=== PATIENT | male | born 2000 | race Hispanic/Latino ===

== ENCOUNTER 2023-10-22 10:57 | Inpatient (IN) | payer OTHER ==
[~2023-10-22] VITALS: Ht 165.1 cm; Wt 57.4 kg
[~2023-10-22 10:57] MED LIST: ROCURONIUM BROMIDE 10MG/1ML 5ML VL IV ONE
[2023-10-22 11:38] LABS: BASOPHILS # (AUTO) 0.03 K/uL (0.00-0.20); BASOPHILS % (AUTO) 0.5 % (0.0-5.0); EOSINOPHILS # (AUTO) 0.03 K/uL (0.00-0.70); EOSINOPHILS % (AUTO) 0.5 % (0.0-8.0); HEMATOCRIT 38.7 % (42-54); IMMATURE GRANULOCYTE ABSOLUTE 0.01 K/uL (0-1); LYMPHOCYTES # (AUTO) 1.3 K/uL (1.0-4.8); LYMPHOCYTES % (AUTO) 21.1 % (21.0-51.0); MEAN CORPUSCULAR HGB CONC 35.4 g/dL (32.0-36.0); MEAN CORPUSCULAR VOLUME 84.9 fL (79-99); MONOCYTES # (AUTO) 0.5 K/uL (0.1-1.0); MONOCYTES % (AUTO) 7.9 % (3.0-13.0); NEUTROPHILS # (AUTO) 4.1 K/uL (1.8-7.7); NEUTROPHILS % (AUTO) 69.8 % (40.0-77.0); PLATELET COUNT (AUTO) 228 K/uL (130-400); RED BLOOD CELL COUNT(AUTO) 4.56 MIL/uL (4.50-6.20); RED CELL DISTRIBUTION WIDTH 11.9 % (11.0-15.5); WHITE BLOOD COUNT (AUTO) 5.9 K/uL (4.8-10.8)
[2023-10-22 11:49] LABS: CARBON DIOXIDE 28 mmol/L (21-32); CHLORIDE 103 mmol/L (101-111); CREATININE 0.8 mg/dL (0.5-1.3); GLOMERULAR FILTR. RATE CALC 128 mL/min (>90); GLUCOSE,RANDOM 104 mg/dL (70-105); SODIUM SERUM 138 mmol/L (136-145); UREA NITROGEN, BLOOD 6 mg/dL (7-18)
[2023-10-22 11:54] LABS: AMPHET/METH SCREEN,URINE NEGATIVE (NEGATIVE); BARBITURATE SCREEN, URINE NEGATIVE (NEGATIVE); BENZODIAZEPINES SCREEN,URINE NEGATIVE (NEGATIVE); CANNABINOID SCREEN,URINE NEGATIVE (NEGATIVE); COCAINE SCREEN,URINE NEGATIVE (NEGATIVE); OPIATE SCREEN,URINE NEGATIVE (NEGATIVE); PHENCYCLIDINE SCREEN,URINE NEGATIVE (NEGATIVE)
[2023-10-22 12:11] LABS: ALANINE AMINOTRANSFERASE 43 U/L (12-78); ALBUMIN 3.5 g/dL (3.5-5.0); ALCOHOL, BLOOD < 3 mg/dL (0-10); ASPARTATE AMINOTRANSFERASE 69 U/L (10-37); BILIRUBIN,TOTAL 0.5 mg/dL (0.2-1.0); TOTAL PROTEIN, SERUM 6.7 g/dL (6.0-8.3)
[2023-10-22] MEDS: 0.9%NACL 1000ML 1,000 ML IV ONE (12:17)
[2023-10-22 12:24] LABS: CREATINE KINASE, TOTAL 3297 U/L (21-232)
[2023-10-22 12:37] LABS: APPEARANCE,URINE CLEAR (CLEAR); BILIRUBIN,URINE NEGATIVE (NEGATIVE); COLOR,URINE COLORLESS (YELLOW); GLUCOSE, URINE (UA) NEGATIVE (NEGATIVE); KETONES,URINE NEGATIVE (NEGATIVE); LEUKOCYTE ESTERASE ,URINE NEGATIVE Leu/uL (NEGATIVE); NITRATE,URINE NEGATIVE (NEGATIVE); OCCULT BLOOD,URINE NEGATIVE (NEGATIVE); PH,URINE 7.5 (5.0-8.0); PROTEIN,URINE NEGATIVE (NEGATIVE); UROBILINOGEN,URINE 0.2 mg/dL (0.2-1.0)
[2023-10-22 12:38] LABS: ADD UA MICROSCOPIC NO
[2023-10-22] MEDS ORDERED: 0.9%NACL 1000ML 1,000 ML IV SCH (14:00)
[2023-10-22] MEDS ORDERED: ONDANSETRON 4MG INJ IVP PRN ×2 (15:00)
[2023-10-22] MEDS ORDERED: ACETAMINOPHEN 500 MG TABLET PO PRN ×2 (15:00)
[2023-10-22] MEDS: THIAMINE HCL 100 MG/ML 2ML VIAL IVP SCH (15:09)
[2023-10-22] MEDS: 0.9%NACL 1000ML 1,000 ML IV SCH (15:10)
[2023-10-22 15:49] LABS: MAGNESIUM 2.1 mg/dL (1.80-2.40); THYROID STIMULATING HORMONE 0.5 uIU/mL (0.36-3.74)
[2023-10-22 16:27] LABS: INR 0.95 (0.85-1.15); PROTHROMBIN TIME 11.3 SEC (9.6-11.6)
[2023-10-22 16:28] LABS: PARTIAL THROMBOPLASTIN TIME 33.5 SEC (26.3-35.5)
[2023-10-22] MEDS: ZIPRASIDONE MESYLATE 20 MG/VIAL IM ONE (19:51)
[2023-10-22] MEDS: ZIPRASIDONE MESYLATE 20 MG/VIAL IM SCH (19:51)
[2023-10-22] MEDS: DiphenhydrAMINE HCL 50 MG/ML VIAL IM ONE (20:47)
[2023-10-22 22:25] VITALS: PULSE 107
[2023-10-22] MEDS: KETAMINE HCL 100 MG/ML 5ML VIAL IJ ONE (22:37)
[2023-10-22] MEDS ORDERED: FENTANYL 2500MCG+NS 250ML 250 ML IV SCH (23:00)
[2023-10-22] MEDS: MIDAZOLAM HCL 50 MG in 0.9%NACL 50ML 50 ML IV SCH (23:05)
[2023-10-22 23:09] LABS: SARS-CoV-2, RNA, NAAT NEGATIVE SARS CoV-2 (NEGATIVE)
[2023-10-22] MEDS: PROPOFOL 1000 MG/100 ML 100 ML IV ONE (23:24)
[2023-10-22] MEDS: FENTANYL 1000MCG+NS 100ML 100 ML IV ONE (23:24)
[2023-10-22] MEDS: FENTANYL 1000MCG+NS 100ML 100 ML IV SCH (23:26)
[2023-10-22] MEDS: FENTANYL 2500MCG+NS 250ML 250 ML IV SCH (23:30)
[2023-10-22] MEDS: MIDAZOLAM 100MG-0.9% NS 100ML 100 ML IV SCH (23:36)
[2023-10-22 23:37] LABS: ABG BASE EXCESS 0.2 mmol/L (-2.0-3.0); ABG HCO3 24.8 mmol/L (21.0-28.0); ABG OXYGEN SATURATION 99.7 % (95.0-99.0); ABG PCO2 40 mmHg (35-48); ABG PH 7.409 (7.350-7.450); DEVICE COMMENT RR RN; PO2, ARTERIAL BG 311.9 mmHg (83.0-108.0); VENT MODE, BG AC (ROOM AIR)
[2023-10-23] VITALS (93 sets, daily range): BP systolic 86–123; BP diastolic 34–69; PULSE 57–91; RESP 16–19; O2SAT 97–100
[2023-10-23 05:07] LABS: BASOPHILS # (AUTO) 0.03 K/uL (0.00-0.20); BASOPHILS % (AUTO) 0.4 % (0.0-5.0); EOSINOPHILS # (AUTO) 0.08 K/uL (0.00-0.70); EOSINOPHILS % (AUTO) 1.1 % (0.0-8.0); HEMATOCRIT 36.6 % (42-54); IMMATURE GRANULOCYTE ABSOLUTE 0.03 K/uL (0-1); MEAN CORPUSCULAR HEMOGLOBIN 29.9 pg (27.0-33.0); MEAN CORPUSCULAR HGB CONC 36.1 g/dL (32.0-36.0); MONOCYTES # (AUTO) 0.8 K/uL (0.1-1.0); MONOCYTES % (AUTO) 10.4 % (3.0-13.0); NEUTROPHILS # (AUTO) 4.5 K/uL (1.8-7.7); NEUTROPHILS % (AUTO) 60.7 % (40.0-77.0); PLATELET COUNT (AUTO) 215 K/uL (130-400); RED BLOOD CELL COUNT(AUTO) 4.41 MIL/uL (4.50-6.20); WHITE BLOOD COUNT (AUTO) 7.4 K/uL (4.8-10.8)
[2023-10-23 05:51] LABS: ALBUMIN 3.3 g/dL (3.5-5.0); BILIRUBIN,TOTAL 0.5 mg/dL (0.2-1.0); CREATININE 0.6 mg/dL (0.5-1.3); MAGNESIUM 1.9 mg/dL (1.80-2.40); POTASSIUM 3.1 mmol/L (3.5-5.1); TOTAL PROTEIN, SERUM 6.2 g/dL (6.0-8.3)
[2023-10-23 06:24] LABS: INFLUENZA TYPE A NEGATIVE FOR TYPE A (NEG)
[2023-10-23 06:25] LABS: INFLUENZA TYPE B NEGATIVE FOR TYPE B (NEG)
[2023-10-23] MEDS ORDERED: POTASSIUM CHLORIDE 10MEQ/100ML 100 ML IV PRN (07:00)
[2023-10-23] MEDS ORDERED: SERT-439 PO (07:54)
[2023-10-23] MEDS ORDERED: CLOZ100T11 PO ×2 (07:54)
[2023-10-23] MEDS ORDERED: KCL 20 MEQ ERTAB PO PRN (08:00)
[2023-10-23] MEDS ORDERED: POTASSIUM CHLORIDE 20MEQ/100ML 100 ML IV PRN (08:00)
[2023-10-23] MEDS: PANTOPRAZOLE 40 MG/VIAL IVP SCH (08:37)
[2023-10-23] MEDS: ENOXAPARIN SODIUM 30 MG/0.3 ML SQ SCH (08:37)
[2023-10-23] MEDS: POTASSIUM CHLORIDE 10% ELIXIR 20 MEQ/15 ML UDCUP PO PRN (08:38)
[2023-10-23] MEDS: MAGNESIUM 2GM PREMIX 50ML 50 ML IV PRN (08:39)
[2023-10-23] MEDS: PROPOFOL 1000 MG/100 ML IV PRN (10:34)
[2023-10-23] MEDS: PROPOFOL 1000 MG/100 ML 100 ML IV ONE (10:36)
[2023-10-23] MEDS: ZIPRASIDONE MESYLATE 20 MG/VIAL IM SCH (11:36)
[2023-10-23] MEDS: DEXTROSE 5%-LACTATED RINGERS 1,000 ML IV SCH (11:36)
[2023-10-23] MEDS: CLOZAPINE 200 MG PO SCH (20:25)
[2023-10-24] VITALS (61 sets, daily range): BP systolic 85–155; BP diastolic 46–87; PULSE 70–117; RESP 14–17; O2SAT 99–100
[2023-10-24 00:24] LABS: ABG BASE EXCESS -2.9 mmol/L (-2.0-3.0); ABG HCO3 21.2 mmol/L (21.0-28.0); ABG OXYGEN SATURATION 98.1 % (95.0-99.0); ABG PCO2 35 mmHg (35-48); ABG PH 7.401 (7.350-7.450); CARBON MONOXIDE 0.3; HHb 1.9; PO2, ARTERIAL BG 132.1 mmHg (83.0-108.0); VENT MODE, BG AC (ROOM AIR)
[2023-10-24] MEDS: FENTANYL 1000MCG+NS 100ML 100 ML IV SCH (01:49)
[2023-10-24 04:21] LABS: BASOPHILS # (AUTO) 0.02 K/uL (0.00-0.20); BASOPHILS % (AUTO) 0.3 % (0.0-5.0); EOSINOPHILS % (AUTO) 1.6 % (0.0-8.0); HEMATOCRIT 37.1 % (42-54); IMMATURE GRANULOCYTE ABSOLUTE 0.01 K/uL (0-1); LYMPHOCYTES # (AUTO) 1.8 K/uL (1.0-4.8); LYMPHOCYTES % (AUTO) 29.1 % (21.0-51.0); MEAN CORPUSCULAR HGB CONC 34.2 g/dL (32.0-36.0); MEAN CORPUSCULAR VOLUME 87.5 fL (79-99); MONOCYTES # (AUTO) 0.8 K/uL (0.1-1.0); MONOCYTES % (AUTO) 12.2 % (3.0-13.0); NEUTROPHILS # (AUTO) 3.5 K/uL (1.8-7.7); NEUTROPHILS % (AUTO) 56.6 % (40.0-77.0); PLATELET COUNT (AUTO) 174 K/uL (130-400); RED BLOOD CELL COUNT(AUTO) 4.24 MIL/uL (4.50-6.20); WHITE BLOOD COUNT (AUTO) 6.2 K/uL (4.8-10.8)
[2023-10-24 04:49] LABS: ALBUMIN 2.7 g/dL (3.5-5.0); BILIRUBIN,TOTAL 0.5 mg/dL (0.2-1.0); CREATININE 0.6 mg/dL (0.5-1.3); POTASSIUM 3.3 mmol/L (3.5-5.1); TOTAL PROTEIN, SERUM 5.7 g/dL (6.0-8.3)
[2023-10-24] MEDS: SERTRALINE HCL 50 MG TABLET PO SCH (08:14)
[2023-10-24] MEDS: ZIPRASIDONE MESYLATE 20 MG/VIAL IM SCH (13:07)
[2023-10-24 20:03] LABS: APPEARANCE,URINE CLEAR (CLEAR); BILIRUBIN,URINE NEGATIVE (NEGATIVE); COLOR,URINE COLORLESS (YELLOW); GLUCOSE, URINE (UA) NEGATIVE (NEGATIVE); KETONES,URINE NEGATIVE (NEGATIVE); LEUKOCYTE ESTERASE ,URINE NEGATIVE Leu/uL (NEGATIVE); NITRATE,URINE NEGATIVE (NEGATIVE); OCCULT BLOOD,URINE NEGATIVE (NEGATIVE); PROTEIN,URINE NEGATIVE (NEGATIVE); UROBILINOGEN,URINE 0.2 mg/dL (0.2-1.0)
[2023-10-24 20:04] LABS: ADD UA MICROSCOPIC YES
[2023-10-24 20:05] LABS: RBC,URINE 0-1 /HPF (0-1)
[2023-10-24] MEDS: CHLORHEXIDINE GLUCONATE 15 ML MOUTHWASH MM SCH (20:20)
[2023-10-24] MEDS: ZOSYN 3.375GM +NS 50ML IV SCH (20:20)
[2023-10-24] MEDS: ARTIFICIAL TEARS 3.5 GM OINTMENT OU SCH (21:10)
[2023-10-25] VITALS (43 sets, daily range): BP systolic 85–148; BP diastolic 39–98; PULSE 79–122; RESP 10–24; O2SAT 95–100
[2023-10-25 05:19] LABS: BASOPHILS # (AUTO) 0.02 K/uL (0.00-0.20); BASOPHILS % (AUTO) 0.3 % (0.0-5.0); EOSINOPHILS # (AUTO) 0.14 K/uL (0.00-0.70); EOSINOPHILS % (AUTO) 1.8 % (0.0-8.0); IMMATURE GRANULOCYTE ABSOLUTE 0.03 K/uL (0-1); MEAN CORPUSCULAR HGB CONC 35.6 g/dL (32.0-36.0); MEAN CORPUSCULAR VOLUME 84.2 fL (79-99); MONOCYTES # (AUTO) 1.1 K/uL (0.1-1.0); MONOCYTES % (AUTO) 14.3 % (3.0-13.0); NEUTROPHILS # (AUTO) 5.6 K/uL (1.8-7.7); NEUTROPHILS % (AUTO) 71.2 % (40.0-77.0); PLATELET COUNT (AUTO) 186 K/uL (130-400); RED BLOOD CELL COUNT(AUTO) 4.87 MIL/uL (4.50-6.20); RED CELL DISTRIBUTION WIDTH 11.7 % (11.0-15.5); WHITE BLOOD COUNT (AUTO) 7.9 K/uL (4.8-10.8)
[2023-10-25 06:03] LABS: ALBUMIN 2.7 g/dL (3.5-5.0); BILIRUBIN,TOTAL 1.2 mg/dL (0.2-1.0); CREATININE 0.8 mg/dL (0.5-1.3); MAGNESIUM 1.5 mg/dL (1.80-2.40); PHOSPHORUS 4.9 mg/dL (2.5-4.9); POTASSIUM 3.5 mmol/L (3.5-5.1); TOTAL PROTEIN, SERUM 6.2 g/dL (6.0-8.3)
[2023-10-25] MEDS ORDERED: DEXMEDETOMIDINE 400MCG/NS100ML IV SCH (10:00)
[2023-10-25] MEDS: DEXMEDETOMIDINE 400MCG/NS100ML IV PRN (10:29)
[2023-10-25] MEDS: RACEPINEPHRINE HCL 2.25% 0.5 ML NEB SOLN ONE (14:49)
[2023-10-25] MEDS: RISPERIDONE 1 MG TABLET PO SCH (17:01)
[2023-10-25] MEDS ORDERED: VANCOMYCIN PROTOCOL PER PHARMACY IV SCH (18:00)
[2023-10-25] MEDS: VANCOMYCIN 1G/250ML KIT 250 ML IV SCH (18:12)
[2023-10-25] MEDS: OLANZAPINE 10MG/ML 1ML VIAL IM ONE (20:29)
[2023-10-25] MEDS: OLANZAPINE 10MG/ML 1ML VIAL IM STA (20:44)
[2023-10-26] VITALS (19 sets, daily range): BP systolic 106–129; BP diastolic 46–95; PULSE 100–119; RESP 11–29; O2SAT 97–100
[2023-10-26 03:59] LABS: BASOPHILS # (AUTO) 0.01 K/uL (0.00-0.20); BASOPHILS % (AUTO) 0.1 % (0.0-5.0); EOSINOPHILS # (AUTO) 0.02 K/uL (0.00-0.70); EOSINOPHILS % (AUTO) 0.2 % (0.0-8.0); HEMATOCRIT 39.7 % (42-54); IMMATURE GRANULOCYTE ABSOLUTE 0.04 K/uL (0-1); LYMPHOCYTES # (AUTO) 0.6 K/uL (1.0-4.8); LYMPHOCYTES % (AUTO) 5.5 % (21.0-51.0); MEAN CORPUSCULAR HEMOGLOBIN 30.3 pg (27.0-33.0); MEAN CORPUSCULAR HGB CONC 35.8 g/dL (32.0-36.0); MEAN CORPUSCULAR VOLUME 84.8 fL (79-99); MONOCYTES # (AUTO) 1.2 K/uL (0.1-1.0); MONOCYTES % (AUTO) 11.7 % (3.0-13.0); NEUTROPHILS # (AUTO) 8.2 K/uL (1.8-7.7); NEUTROPHILS % (AUTO) 82.1 % (40.0-77.0); PLATELET COUNT (AUTO) 183 K/uL (130-400); RED BLOOD CELL COUNT(AUTO) 4.68 MIL/uL (4.50-6.20); RED CELL DISTRIBUTION WIDTH 11.8 % (11.0-15.5); WHITE BLOOD COUNT (AUTO) 9.9 K/uL (4.8-10.8)
[2023-10-26 04:13] LABS: ALBUMIN 2.9 g/dL (3.5-5.0); BILIRUBIN,TOTAL 0.6 mg/dL (0.2-1.0); CREATININE 0.7 mg/dL (0.5-1.3); MAGNESIUM 1.9 mg/dL (1.80-2.40); PHOSPHORUS 3.4 mg/dL (2.5-4.9); POTASSIUM 4.1 mmol/L (3.5-5.1); TOTAL PROTEIN, SERUM 6.6 g/dL (6.0-8.3)
[2023-10-26] MEDS: OLANZAPINE 10MG/ML 1ML VIAL IM SCH (12:00)
[2023-10-26] MEDS: CEFEPIME HCL 1 GM VIAL IVPB SCH (13:24)
[2023-10-26] MEDS: CHLORPROMAZINE HCL 25 MG/ML 1ML AMP IM PRN (14:11)
[2023-10-26 15:29] LABS: THYROID STIMULATING HORMONE 0.38 uIU/mL (0.36-3.74)
[2023-10-26] MEDS ORDERED: CLONAZEPAM 1MG TAB PO SCH (20:30)
[2023-10-26] MEDS ORDERED: OLANZAPINE ODT 5 MG TAB PO PRN (20:30)
[2023-10-26] MEDS: CLONAZEPAM 1MG TAB PO ONE (21:27)
[2023-10-27] VITALS (9 sets, daily range): BP systolic 99–142; BP diastolic 45–94; PULSE 106–123; RESP 17–21; O2SAT 96–98
[2023-10-27 09:55] LABS: HEMATOCRIT 39.6 % (42-54); MEAN CORPUSCULAR HEMOGLOBIN 29.6 pg (27.0-33.0); MEAN CORPUSCULAR HGB CONC 35.6 g/dL (32.0-36.0); RED BLOOD CELL COUNT(AUTO) 4.77 MIL/uL (4.50-6.20); RED CELL DISTRIBUTION WIDTH 11.8 % (11.0-15.5); WHITE BLOOD COUNT (AUTO) 7.4 K/uL (4.8-10.8)
[2023-10-27 10:05] LABS: CREATININE 0.7 mg/dL (0.5-1.3); POTASSIUM 4.1 mmol/L (3.5-5.1)
[2023-10-27 10:28] LABS: BILIRUBIN,TOTAL 0.6 mg/dL (0.2-1.0); TOTAL PROTEIN, SERUM 7.1 g/dL (6.0-8.3)
[2023-10-27 11:38] LABS: AMPHET/METH SCREEN,URINE NEGATIVE (NEGATIVE); BARBITURATE SCREEN, URINE NEGATIVE (NEGATIVE); BENZODIAZEPINES SCREEN,URINE POSITIVE (NEGATIVE); CANNABINOID SCREEN,URINE NEGATIVE (NEGATIVE); COCAINE SCREEN,URINE NEGATIVE (NEGATIVE); CREATININE,URINE RANDOM 33.85 mg/dL (30-135); OPIATE SCREEN,URINE NEGATIVE (NEGATIVE); PHENCYCLIDINE SCREEN,URINE NEGATIVE (NEGATIVE)
[2023-10-27] MEDS: LACTATED RINGERS 1000ML 1,000 ML IV SCH (12:30)
[2023-10-27] MEDS: LACTULOSE 20 GM/30 ML UDCUP PO ONE (16:23)
[2023-10-27] MEDS: AMOX/CLAV 875/125MG TAB PO SCH (20:31)
[2023-10-28 04:00] VITALS: BP 140/80; PULSE 122; RESP 24
[2023-10-28 06:20] LABS: HEMATOCRIT 39.8 % (42-54); MEAN CORPUSCULAR HEMOGLOBIN 29.9 pg (27.0-33.0); MEAN CORPUSCULAR HGB CONC 35.2 g/dL (32.0-36.0); RED BLOOD CELL COUNT(AUTO) 4.68 MIL/uL (4.50-6.20); RED CELL DISTRIBUTION WIDTH 11.7 % (11.0-15.5); WHITE BLOOD COUNT (AUTO) 7.3 K/uL (4.8-10.8)
[2023-10-28 06:53] LABS: BILIRUBIN,TOTAL 0.4 mg/dL (0.2-1.0); CREATININE 0.8 mg/dL (0.5-1.3); MAGNESIUM 1.9 mg/dL (1.80-2.40); POTASSIUM 3.8 mmol/L (3.5-5.1)
[2023-10-28 06:54] LABS: TOTAL PROTEIN, SERUM 7.1 g/dL (6.0-8.3)
[2023-10-28 08:00] VITALS: BP 136/67; PULSE 107; RESP 18; O2SAT 98
[2023-10-28] MEDS: CLONAZEPAM 1MG TAB PO PRN (11:36)
[2023-10-28 12:00] VITALS: BP 139/69; PULSE 112; RESP 18
[2023-10-28 16:00] VITALS: BP 136/80; PULSE 118; RESP 18
[2023-10-28] MEDS: BACITRACIN 1 EACH PACKET TP ONE (17:41)
[2023-10-28] MEDS: OLANZAPINE ODT 5 MG TAB SL STA (18:26)
[2023-10-28 20:00] VITALS: BP 162/73; PULSE 115; RESP 18; O2SAT 97
[2023-10-28] MEDS: OLANZAPINE ODT 5 MG TAB PO PRN (23:32)
[2023-10-29] VITALS: BP 140/73; PULSE 126; RESP 23
[2023-10-29 04:00] VITALS: BP 147/74; PULSE 117; RESP 18
== END 2023-10-29 11:15 | disposition short-term general hospital (02) | DRG 557 ==
LOC: EDH 10:57 → EDHIP 10:58 → 2CV 23:34 → 2BH 10-23 23:16 → 2DH 10-26 17:11 → 4AH 10-27 20:01
PROVIDERS: ADMIT Internal Medicine; ATTEND Internal Medicine
PROC: 5A1945Z Respiratory Ventilation, 24-96 Consecutive Hours (ICD-10-PCS; principal; 2023-10-23)
PROC: 0BH17EZ Insertion of Endotracheal Airway into Trachea, Via Natural or Artificial Opening (ICD-10-PCS; 2023-10-24)
DX: M62.82 Rhabdomyolysis (principal); G92.8 Other toxic encephalopathy; J96.00 Acute respiratory failure, unspecified whether with hypoxia or hypercapnia; J69.0 Pneumonitis due to inhalation of food and vomit; R78.81 Bacteremia; F41.9 Anxiety disorder, unspecified; F25.9 Schizoaffective disorder, unspecified; R45.850 Homicidal ideations; B95.61 Methicillin susceptible Staphylococcus aureus infection as the cause of diseases classified elsewhere; F19.10 Other psychoactive substance abuse, uncomplicated; F63.81 Intermittent explosive disorder; F31.9 Bipolar disorder, unspecified; Z79.899 Other long term (current) drug therapy
CPT/HCPCS: 31500; 36415; 36600; 70450; 71045; 80053; 80202; 80305; 81001; 81003; 82140; 82390; 82435; 82550; 82570; 82728; 82803; 82947; 82948; 83605; 83735; 84100; 84132; 84295; 84439; 84443; 84481; 85018; 85025; 85027; 85610; 85730; 87040; 87071; 87077; 87186; 87205; 87635; 87804; 93005; 94002; 94003; 94640; 96372; 96374; 99291; C9113; G0378; J0692; J1200; J1650; J2250; J2543; J2704; J3010; J3230; J3370; J3411; J3475; J3486; J3490; J7030; A9900